=== PATIENT | female | born 1955 | race Caucasian/White ===

== ENCOUNTER 2024-03-24 06:10 | Day surgery (SDC) | payer OTHER, MEDICARE ==
[2024-03-18 15:13] VITALS: BMI 23.3
[2024-03-24] MEDS ORDERED: PROPOFOL 40 ML ONE (07:13)
[2024-03-24] MEDS ORDERED: ceFAZolin SODIUM 1 GM VIAL ONE ×2 (07:13)
[2024-03-24] MEDS ORDERED: LIDOCAINE 1%/EPI 1:100000 (20 ML MULTI DOSE VIAL) ONE ×2 (07:13→07:26)
[2024-03-24] MEDS ORDERED: MIDAZOLAM HCL 2 MG/2 ML SINGLE DOSE VIAL ONE (07:13)
[2024-03-24] MEDS ORDERED: TETRACAINE 0.5% OPHTH SOLN 2 ML BOTTLE ONE (07:13)
[2024-03-24] MEDS ORDERED: DEXAMETHASONE SOD PHOSPHATE 4 MG/1 ML VIAL ONE (07:13)
[2024-03-24] MEDS ORDERED: POVIDONE-IODINE 5% OPHTHALMIC PREP 30 ML SOLUTION ONE (07:13)
[2024-03-24] MEDS ORDERED: ONDANSETRON 4 MG/2 ML VIAL ONE (07:13)
[2024-03-24] MEDS ORDERED: ERYTHROMYCIN 0.5% OPHTHALMIC OINTMENT 3.5 GM TUBE ONE (07:13)
[2024-03-24] MEDS ORDERED: BUPIVACAINE HCL/PF 0.5% (5MG/ML) 10 ML VIAL ONE (07:13)
[2024-03-24] MEDS ORDERED: ePHEDrine SULFATE 50 MG/1 ML AMPULE ONE (08:19)
[2024-03-24] MEDS ORDERED: PROPOFOL 60 ML ONE (08:27)
[2024-03-24] MEDS ORDERED: oxyCODONE HCL 5 MG TABLET PO PRN (09:18)
[2024-03-24] MEDS ORDERED: LACTATED RINGERS SOLUTION 1,000 ML IV SCH (09:30)
[2024-03-24] MEDS ORDERED: ONDANSETRON 4 MG/2 ML VIAL IVPUSH PRN (09:36)
[2024-03-24] MEDS ORDERED: ACETAMINOPHEN 1000 MG/100 ML BAG IVPB ONE (09:45)
[2024-03-24 09:53] VITALS: RESP 16
[2024-03-24 11:02] VITALS: TEMP 97.1
[2024-03-24 11:04] VITALS: BP 111/64; PULSE 80
== END 2024-03-24 11:25 | disposition home or self-care (01) ==
LOC: FASU 06:10
PROVIDERS: ATTEND Ophthalmology
PROC: 0KX Muscles, Transfer (ICD-10-PCS; 2024-03-24)
PROC: 08SQ0ZZ Reposition Right Lower Eyelid, Open Approach (ICD-10-PCS; principal; 2024-03-24 08:10)
DX: C44.1292 Squamous cell carcinoma of skin of left lower eyelid, including canthus (principal); C44.329 Squamous cell carcinoma of skin of other parts of face
CPT/HCPCS: 94760